=== PATIENT | female | born 1950 | race American Indian/Alaskan Native ===

== ENCOUNTER → 2017-11-29 | Day surgery (SDC) | payer MEDICARE ==
[2017-11-17 15:34] VITALS: BMI 30.7
[~2017-11-29] MED LIST: HYDROmorphone 0.5 mg/0.5 ml ISec IVP PRN; Lactated Ringer's 1,000 ML IV ONE; Lactated Ringer's 1,000 ML IV SCH; Lidocaine 1% Inj (20ml) ONE; Midazolam 2 MG/2 ML VIAL ONE; Oxycodone/Acetaminophen 5/325 mg Tab PO PRN; Propofol 10 mg/ml Inj (20 ML) ONE; ceFAZolin 1 gm in NS 0 GM/0 ML BAG IVPB ONE; ceFAZolin IV 2 gm in Dextrose 2 GM/50 ML BAG IVPB ONE
--- NOTE | 2017-11-29 10:27 | PCM.SURG1 ---
Surgeon's Initial Post Op Note - Surgeon's Notes Surgeon: smiley Linen Room Worker: 0 Anesthesia Administered By: kristina Pre-Operative Diagnosis: breast cancer Operative Findings: port to svc from left jugular Post-Operative Diagnosis: same Operation Performed: powerport via left jugular with US guidance Specimen/Specimens Removed: 0 Estimated Blood Loss: EBL {In ML}: 10 Blood Products Given: N/A Drains Used: No Drains Post-Op Condition: Good Date of Surgery/Procedure: 11/29/17 Time of Surgery/Procedure: 10:27
--- NOTE | 2017-11-29 11:10 | RAD ---
HISTORY: port COMPARISON: No prior. FINDINGS: The left MediPort terminates in the SVC. LUNGS: No active pulmonary disease. PLEURA: No significant pleural effusion identified, no pneumothorax apparent. CARDIOVASCULAR: Normal. OSSEOUS STRUCTURES: No significant abnormalities. VISUALIZED UPPER ABDOMEN: Normal. OTHER FINDINGS: None. IMPRESSION: Left MediPort terminates in the SVC. No acute findings.
[2017-11-29 12:13] VITALS: BP 137/79; PULSE 89; RESP 18; TEMP 97; O2SAT 95
--- NOTE | 2017-11-29 22:03 | OP ---
PROCEDURE DATE: 11/29/2017 PREOPERATIVE DIAGNOSIS: Breast cancer, Port-A-cath chemotherapy. POSTOPERATIVE DIAGNOSIS: Breast cancer, Port-A-cath chemotherapy. PROCEDURE CARRIED OUT: Placement of titanium PowerPort via left jugular vein with C-arm fluoroscopy, ultrasound-guided puncture and micropuncture technique. SURGEON: Joey Mooney Jr., MD FABRICATION MACHINE OPERATOR: None. ANESTHESIOLOGIST: INDICATIONS: The patient is a 67-year-old woman recently diagnosed with breast cancer, requires preoperatively chemotherapy. OPERATIVE FINDINGS: Catheter was inserted eventfully via the jugular vein. DESCRIPTION OF PROCEDURE: Using micropuncture technique and ultrasound guidance, the left jugular vein was cannulated. Under fluoroscopic control, the guidewire was advanced centrally. This was exchanged with a #3 FiberWire. Then a sheath dilator was passed. The initial cath was short and so we decided to use a longer catheter which reached the appropriate location. This was then flushed with heparinized saline attached to the port and the subcutaneous pocket created in the left chest wall. Blood loss of the procedure was less than 10 mL. Operation carried out was titanium PowerPort via left jugular vein with C-arm fluoroscopy, ultrasound-guided puncture and micropuncture technique. Ultrasound imaging of the neck showed the vein was 15 mm in diameter, no compressibility and no evidence of intraluminal thrombosis. Joey Mooney Jr., MD cc: Maia Murillo MD
--- NOTE | 2017-11-30 09:40 | RAD ---
PROCEDURE: HISTORY: As above COMPARISON: None TECHNIQUE: Total fluoroscopic time utilized during the procedure: 35.9 seconds ; 0.67145 mGy cm 2 FINDINGS: Submitted images from the current procedure: 1 Please refer to the physician's notes performing the procedure. IMPRESSION: Less than 1 hour fluoroscopic time utilized during performance of the procedure
== END | disposition home or self-care (01) ==
LOC: C.SDS 06:54
PROVIDERS: ATTEND Surgery Vascular Surgery
DX: C50.919 Malignant neoplasm of unspecified site of unspecified female breast (principal)
CPT/HCPCS: 36561; 71045; J0690; J1170; J2250; J2704; J3010; J7120

== ENCOUNTER 2018-07-23 10:28 | Inpatient (IN) | payer MEDICARE, OTHER ==
[2018-07-23 10:28] VITALS: BMI 32.4
[2018-07-23] MEDS ORDERED: Vancomycin 1 GM 1 GM/250 ML BAG IV STA (11:02)
[2018-07-23] MEDS ORDERED: Cefepime 1 GM in Sodium Chloride 0.9% 50 ML IVPB ONE (11:02)
--- NOTE | 2018-07-23 11:07 | C.PDOC ---
History Of Present Illness Patient sent to ED by PMD for evaluation of possible septic arthitis. Patient is s/p arthrocentesis 1 week ago in his office, was started on PO Levaquin monday (07/21). Results of arthrocentesis showed WBC count >100,000. Patient is c/o B/L knee pain R>L, worse with standing and ambulation. She has PMhx of HTN, breast CA on chemotherapy (last one 06/03/18), DVT, diverticulitis, osteoarthritis. PMD Dr. Jones hem/onc Dr. Murillo Time Seen by Provider: 07/23/18 10:46 Chief Complaint (Nursing): Back Pain History Per: Patient History/Exam Limitations: no limitations Onset/Duration Of Symptoms: Days Current Symptoms Are (Timing): Still Present Quality Of Discomfort: "Pain" Severity: Moderate Associated Symptoms: denies: Incontinence, New Weakness, New Numbness Exacerbating Factor(s): Standing, Other (abmulation) Past Medical History Reviewed: Historical Data, Nursing Documentation, Vital Signs Vital Signs: Last Vital Signs Temp 98.2 F 07/23/18 10:41 Pulse 89 07/23/18 10:41 Resp 18 07/23/18 10:41 BP 131/86 07/23/18 10:41 Pulse Ox 95 07/23/18 10:41 - Medical History PMH: Arthritis (knees), Diverticulitis, Deep Vein Thrombosis, HTN, Malignancy (breast cancer), Peripheral Edema Surgical History: Appendectomy, Cholecystectomy, Tonsillectomy Family History: States: Hypertension - Social History Hx Alcohol Use: No Hx Substance Use: Yes (cannabis) - Immunization History Hx Tetanus Toxoid Vaccination: No Hx Influenza Vaccination: No Hx Pneumococcal Vaccination: No Review Of Systems Constitutional: Negative for: Fever, Chills Cardiovascular: Negative for: Chest Pain, Palpitations Respiratory: Negative for: Cough, Shortness of Breath Gastrointestinal: Negative for: Nausea, Vomiting, Abdominal Pain, Diarrhea Musculoskeletal: Positive for: Other (B/L knee pain R>L) Skin: Negative for: Rash Neurological: Negative for: Weakness, Numbness Physical Exam - Physical Exam Appears: Well, Non-toxic, No Acute Distress Skin: Warm, Dry, No Rash Eye(s): bilateral: Normal Inspection Oral Mucosa: Moist Chest: Other (portacath left upper chest) Cardiovascular: Rhythm Regular Respiratory: Normal Breath Sounds, No Rales, No Rhonchi, No Wheezing Gastrointestinal/Abdominal: Normal Exam, Bowel Sounds, Soft, No Tenderness Extremity: Tenderness (right knee TTP arounds patella with mild swelling, mild warmth to touch, no erythema), No Calf Tenderness, No Deformity Pulses: Left Dorsalis Pedis: Normal, Right Dorsalis Pedis: Normal Neurological/Psych: Oriented x3 ED Course And Treatment - Laboratory Results Result Diagrams: 07/27/18 13:31 07/28/18 07:15 O2 Sat by Pulse Oximetry: 95 (RA) Pulse Ox Interpretation: Normal Progress Note: Blood work ordered and reviewed. IV Vancomycin and IV Cefepime + PO Percocet given. - Physician Consult Information Physician Contacted: Luz Marina Jones Outcome Of Conversation: Discussed patient with PMD, concerned for septic arthritis due to WBC >100k in synovial fluid (arthrocentesis done in his office). Disposition - Disposition Disposition: HOSPITALIZED Disposition Time: 12:16 Condition: STABLE - Clinical Impression Clinical Impression: Septic arthritis of knee, right, Breast cancer Decision To Admit - Pt Status Changed To: Hospital Disposition Of: Inpatient - Admit Certification Admit to Inpatient:: After my assessment, the patient will require hospitalization for at least two midnights. This is because of the severity of symptoms shown, intensity of services needed, and/or the medical risk in this patient being treated as an outpatient. - InPatient: Physician Admission Certification:: see notes - . Bed Request Type: Regular Admitting Physician: Luz Marina Jones Patient Diagnosis: Septic arthritis of knee, right
[2018-07-23 11:27] LABS: VENOUS BLOOD GAS BASE EXCESS 3.9 mmol/L (0.0-2.0); VENOUS BLOOD GAS PCO2 58 mmHg (40-60); VENOUS BLOOD GAS PO2 16 mm/Hg (30-55); VENOUS BLOOD PH 7.34 (7.32-7.43)
[2018-07-23 11:29] LABS: BASO % 0.5 % (0.0-2.0); EOS # 0.1 K/uL (0.0-0.7); EOS % 1.6 % (0.0-4.0); LYMPH # 0.8 K/uL (1.0-4.3); LYMPH % 10.5 % (20.0-40.0); MEAN CELL VOLUME 97.8 fL (81.0-99.0); MEAN CORPUSCULAR HEMOGLOBIN 33.9 pg (27.0-31.0); MEAN CORPUSCULAR HGB CONC 34.6 g/dL (33.0-37.0); MEAN PLATELET VOLUME 7.7 fL (7.2-11.7); MONO # 0.6 K/uL (0.0-0.8); MONO % 7.4 % (0.0-10.0); NEUT # 6.1 K/uL (1.8-7.0); NRBC % 0.1 % (0.0-2.0); RBC 3.85 Mil/uL (3.80-5.20); RED CELL DISTRIBUTION WIDTH 14.8 % (11.5-14.5); WHITE BLOOD COUNT 7.6 K/uL (4.8-10.8)
[2018-07-23] MEDS ORDERED: Vancomycin 1 GM 1 GM/250 ML BAG IVPB ONE (11:40)
[2018-07-23 11:59] LABS: ALB/GLOB RATIO 1.1 (1.0-2.1); ALT/SGPT 16 U/L (9-52); AST/SGOT 35 U/L (14-36); BLOOD UREA NITROGEN 9 mg/dL (7-17); CALCIUM 10.1 mg/dl (8.6-10.4); GFR NON-AFRICAN AMERICAN > 60
[2018-07-23] MEDS ORDERED: Oxycodone/Acetaminophen 5/325 mg Tab PO STA (12:27)
[2018-07-23] MEDS ORDERED: Oxycodone/Acetaminophen 5/325 mg Tab ONE (12:56)
[2018-07-23 13:39] LABS: SQUAMOUS EPITHIAL 1 /hpf (0-5); URINE BILIRUBIN NEGATIVE (NEGATIVE); URINE BLOOD NEGATIVE (NEGATIVE); URINE CLARITY Clear (Clear); URINE COLOR Straw (YELLOW); URINE GLUCOSE (UA) NORMAL (Normal); URINE LEUKOCYTE ESTERASE NEG Leu/uL (Negative); URINE PROTEIN NEGATIVE (NEGATIVE); URINE UROBILINOGEN NORMAL mg/dL (0.2-1.0)
[2018-07-23] MEDS ORDERED: Albuterol-Ipratrop 3 mg / 0.5 (3 ml) UD INH PRN (15:20)
[2018-07-23] MEDS: Cefepime IV 1 gm in Dextrose 1 GM/50 ML BAG IVPB SCH (17:42)
[2018-07-23] MEDS: Oxycodone/Acetaminophen 5/325 mg Tab PO PRN (20:09)
[2018-07-24] MEDS: Cefepime IV 1 gm in Dextrose 1 GM/50 ML BAG IVPB SCH ×2 (04:46→16:50)
[2018-07-24] MEDS: Oxycodone/Acetaminophen 5/325 mg Tab PO PRN ×2 (04:51→17:52)
--- NOTE | 2018-07-24 09:56 | RAD ---
Date of service: 07/24/2018 PROCEDURE: Bilateral Knee Radiographs. HISTORY: knee pain, hx breast ca COMPARISON: None. FINDINGS: BONES: Right Knee: No fracture Left Knee: No fracture JOINTS: Right Knee: Arthrosis Left knee: Arthrosis SOFT TISSUES: Right Knee: Normal. Left Knee: Normal. JOINT EFFUSION: Right Knee: Present Left Knee: Present OTHER FINDINGS: None. IMPRESSION: Bilateral advanced tricompartmental osteoarthrosis. Each medial femoral tibial compartment most notably affected right knee more than left. Subarticular cystic changes that on the right suggests a geode measuring up to 1.7 cm medial tibial plateau. Bilateral prominent knee joint effusions right greater than left Comments: If further evaluation is needed consider MRI of the knee
--- NOTE | 2018-07-24 09:58 | RAD ---
Date of service: 07/24/2018 PROCEDURE: Radiographs of the bilateral Tibiae and Fibulae. HISTORY: leg pain COMPARISON: None available. TECHNIQUE: Frontal and lateral views obtained. FINDINGS: BONES: RIGHT TIBIA: No fracture a geographic sclerotic appearing approximately 4 by 20 mm lesion projects over the mid to proximal right tibial shaft frontal view. This may be the posterior cortical thickened appearance at this level on the right lateral view No pathological fracture seen here. Appearance nonspecific. Bone island as well as blastic lesions are some considerations. Its chronicity is unknown. LEFT TIBIA: No fracture JOINT SPACES: RIGHT TIBIA: Tricompartmental joint space narrowing knee levelAnkle joint also appears narrowed LEFT TIBIA: Tricompartmental joint space narrowing knee level ankle joint also appears narrowed SOFT TISSUES: RIGHT TIBIA: Normal. LEFT TIBIA: Normal. OTHER FINDINGS: None. IMPRESSION: No fracture appreciated. There are multiple sub articular cystic lucencies sleeve arthro pathic in nature most pronounced at each knee level right greater than left. These are referenced on the same-day bilateral knee x-ray report. The mid to proximal right tibial shaft sclerotic lesion is nonspecific-a bone island is 1 consideration. Conceivably a blastic lesion is not excluded-this is however believe less likely. If echo register is to apparent posterior tibial cortical thickening. If needed consider MRI of the right lower leg for further evaluation. Incidentally noted-right quadriceps insertional enthesophyte
--- NOTE | 2018-07-24 10:52 | CP.PCM.CON ---
History of Present Illness - History of Present Illness History of Present Illness: Orthopedic consultation Dr. Whipple 67F complains of R>>L knee pain, worsening over last week. She says that she always has knee pain due to her arthritis, that she probably should have had knee replacement years ago, but she has been getting cortisone injections which helped. She says she usually walks without assistive device but occasionally uses cane, but over last week she has to use walker. Patient says she saw Dr. Jones in his office and he drained 3 tubes of yellow fluid from her right knee approx 10 days ago, and then they called her and told her to come to hospital. She says her knee isn't feeling any better from taking the antibiotics Dr. Jones prescribed. Denies numbness/tingling. Denies trauma/falls/CP/SOB /dizziness/n/v/fever/chills. Patient has right breast cancer with +nodes, completed 8 months of chemo early June. Patient has not had breast surgery yet. No known bony involvement or distant mets. No history of gout per patient Patient had recent sore throat approx 2 weeks ago D/w Dr. Jones who states >90,000 WBC, approx 90% pmns, cultures negative Review of Systems - Review of Systems All systems: reviewed and no additional remarkable complaints except - Constitutional Constitutional: As Per HPI - Cardiovascular Cardiovascular: As Per HPI - Respiratory Respiratory: As Per HPI - Gastrointestinal Gastrointestinal: As Per HPI - Musculoskeletal Musculoskeletal: As Per HPI - Integumentary Additional comments: no wounds - Hematologic/Lymphatic Hematologic: absent: As Per HPI, Easy Bleeding, Easy Bruising, Lymphadenopathy, Other Past Patient History - Infectious Disease Hx of Infectious Diseases: None - Tetanus Immunizations Tetanus Immunization: Unknown - Past Medical History & Family History Past Medical History?: Yes Past Family History: Reviewed and not pertinent - Past Social History Smoking Status: Former Smoker - CARDIAC Hx Hypertension: Yes Hx Peripheral Edema: Yes - PULMONARY Hx Respiratory Disorders: No - NEUROLOGICAL Hx Neurological Disorder: No - HEENT Hx HEENT Problems: No - RENAL Hx Chronic Kidney Disease: No - ENDOCRINE/METABOLIC Hx Endocrine Disorders: No - INTEGUMENTARY Hx Dermatological Problems: No - MUSCULOSKELETAL/RHEUMATOLOGICAL Hx Arthritis: Yes (knees) Hx Falls: No - GASTROINTESTINAL Hx Diverticulitis: Yes - GENITOURINARY/GYNECOLOGICAL Hx Genitourinary Disorders: No - PSYCHIATRIC Hx Substance Use: Yes (cannabis) - SURGICAL HISTORY Hx Appendectomy: Yes Hx Cholecystectomy: Yes Hx Tonsillectomy: Yes - ANESTHESIA Hx Anesthesia: Yes Hx Anesthesia Reactions: No Hx Malignant Hyperthermia: No Meds Allergies/Adverse Reactions: Allergies Allergy/AdvReac Type Severity Reaction Status Date / Time enalapril Allergy RASH Verified 03/14/18 18:31 iodine Allergy SWELLING Verified 03/14/18 18:31 lisinopril Allergy SWELLING Verified 03/14/18 18:31 shellfish derived AdvReac Severe ITCHING Verified 03/14/18 18:31 metronidazole [From Flagyl] AdvReac ANAPHYLAXIS Verified 03/14/18 18:31 - Medications Medications: Current Medications Acetaminophen (Tylenol 325mg Tab) 650 mg PO Q6 PRN PRN Reason: Pain, Mild (1-3) Albuterol/Ipratropium (Duoneb 3 Mg/0.5 Mg (3 Ml) Ud) 3 ml INH RQ6 PRN PRN Reason: Shortness of Breath Amlodipine Besylate (Norvasc) 5 mg PO DAILY [facility] Last Admin: 07/24/18 09:45 Dose: 5 mg Docusate Sodium (Colace) 100 mg PO BID [facility] Last Admin: 07/24/18 09:44 Dose: 100 mg Hydrochlorothiazide (Microzide) 12.5 mg PO DAILY [facility] Last Admin: 07/24/18 09:45 Dose: 12.5 mg Cefepime HCl (Maxipime Iv 1 Gm Premix) 1 gm in 50 mls @ 100 mls/hr IVPB Q12H [facility]; Protocol Last Admin: 07/24/18 04:46 Dose: 100 mls/hr Ondansetron HCl (Zofran Tab) 8 mg PO Q12 PRN PRN Reason: Nausea/Vomiting Oxycodone/Acetaminophen (Percocet 5/325 Mg Tab) 1 tab PO Q8 PRN PRN Reason: Pain, moderate (4-7) Stop: 07/26/18 22:01 Last Admin: 07/24/18 04:51 Dose: 1 tab Physical Exam - Constitutional Appears: Well, No Acute Distress - Head Exam Head Exam: ATRAUMATIC - Neck Exam Neck exam: Positive for: Full Rom, Normal Inspection - Respiratory Exam Respiratory Exam: NORMAL BREATHING PATTERN - Cardiovascular Exam Additional comments: +DP/PT pulses - Extremities Exam Additional comments: B knee effusions, moderate R knee warm, Left knee normal temperature mild pain with flexion of R knee beyond 75 degrees, no pain with PROM skin intact, no obvious erythema - Neurological Exam Neurological exam: Alert, Oriented x3 - Psychiatric Exam Psychiatric exam: Normal Affect, Normal Mood - Skin Skin Exam: Dry, Intact, Normal Color, Warm Results - Vital Signs Recent Vital Signs: Last Vital Signs Temp 98.5 F 07/24/18 07:00 Pulse 82 07/24/18 07:00 Resp 20 07/24/18 07:00 BP 117/68 07/24/18 07:00 Pulse Ox 95 07/24/18 07:00 - Labs Result Diagrams: 07/23/18 11:20 07/23/18 11:20 Labs: Laboratory Results - last 24 hr 07/23/18 07/23/18 07/23/18 11:20 11:20 11:24 WBC 7.6 RBC 3.85 Hgb 13.0 D Hct 37.7 MCV 97.8 D MCH 33.9 H MCHC 34.6 RDW 14.8 H Plt Count 346 D MPV 7.7 Neut % (Auto) 80.0 H Lymph % (Auto) 10.5 L Lamb % (Auto) 7.4 Eos % (Auto) 1.6 Baso % (Auto) 0.5 Neut # (Auto) 6.1 Lymph # (Auto) 0.8 L Lamb # (Auto) 0.6 Eos # (Auto) 0.1 Baso # (Auto) 0.0 pO2 16 L VBG pH 7.34 VBG pCO2 58 VBG HCO3 25.8 VBG Total CO2 33.1 H VBG O2 Sat (Calc) 21.2 L VBG Base Excess 3.9 H VBG Potassium 4.0 Glucose 111 H Lactate 1.5 Sodium 138 136.0 Potassium 4.5 Chloride 98 100.0 Carbon Dioxide 27 Anion Gap 17 BUN 9 Creatinine 0.8 Est GFR ( Amer) > 60 Est GFR (Non-Af Amer) > 60 Random Glucose 117 H Calcium 10.1 Total Bilirubin 0.5 AST 35 ALT 16 Alkaline Phosphatase 111 Total Protein 7.7 Albumin 4.0 Globulin 3.7 Albumin/Globulin Ratio 1.1 Venous Blood Potassium 4.0 Urine Color Urine Clarity Urine pH Ur Specific Charmco Urine Protein Urine Glucose (UA) Urine Ketones Urine Blood Urine Nitrate Urine Bilirubin Urine Urobilinogen Ur Leukocyte Esterase Urine WBC (Auto) Ur Squamous Epith Cells 07/23/18 13:33 WBC RBC Hgb Hct MCV MCH MCHC RDW Plt Count MPV Neut % (Auto) Lymph % (Auto) Lamb % (Auto) Eos % (Auto) Baso % (Auto) Neut # (Auto) Lymph # (Auto) Lamb # (Auto) Eos # (Auto) Baso # (Auto) pO2 VBG pH VBG pCO2 VBG HCO3 VBG Total CO2 VBG O2 Sat (Calc) VBG Base Excess VBG Potassium Glucose Lactate Sodium Potassium Chloride Carbon Dioxide Anion Gap BUN Creatinine Est GFR ( Amer) Est GFR (Non-Af Amer) Random Glucose Calcium Total Bilirubin AST ALT Alkaline Phosphatase Total Protein Albumin Globulin Albumin/Globulin Ratio Venous Blood Potassium Urine Color Straw Urine Clarity Clear Urine pH 7.0 Ur Specific Charmco 1.004 Urine Protein Negative Urine Glucose (UA) Normal Urine Ketones Negative Urine Blood Negative Urine Nitrate Negative Urine Bilirubin Negative Urine Urobilinogen Normal Ur Leukocyte Esterase Neg Urine WBC (Auto) < 1 Ur Squamous Epith Cells 1 - Impressions Impression: atient Name / ID : BRONSON BLOUNT / [id number] Exam Date : 07/24/2018 09:02:52 ( Approved ) Study Comment : Sex / Age : F / [id number] Creator : Smita Covington V. Dictator : Smita Covington V. Artists' Booking Representative : Dictaphone Technician : Smita Covington V. Approver2 : Report Date : 07/24/2018 09:31:56 My Comment : Date of service: 07/24/2018 PROCEDURE: Bilateral Knee Radiographs. HISTORY: knee pain, hx breast ca COMPARISON: None. FINDINGS: BONES: Right Knee: No fracture Left Knee: No fracture JOINTS: Right Knee: Arthrosis Left knee: Arthrosis SOFT TISSUES: Right Knee: Normal. Left Knee: Normal. JOINT EFFUSION: Right Knee: Present Left Knee: Present OTHER FINDINGS: None. IMPRESSION: Bilateral advanced tricompartmental osteoarthrosis. Each medial femoral tibial compartment most notably affected right knee more than left. Subarticular cystic changes that on the right suggests a geode measuring up to 1.7 cm medial tibial plateau. Bilateral prominent knee joint effusions right greater than left Comments: If further evaluation is needed consider MRI of the knee Assessment & Plan (1) Effusion of knee joint right Assessment and Plan: patient seen and examined by Dr. Whipple states patient is afebrile, no leukocytosis, mildly symptomatic knee that does not clinically appear septic will monitor at this time for response to antibiotics, no surgical intervention indicated at present PT/OT VTE proph will monitor as per Dr. Whipple Status: Acute (2) Degenerative arthritis of right knee Status: Acute (3) Primary osteoarthritis of left knee Status: Acute
--- NOTE | 2018-07-24 19:53 | CP.PCM.HP ---
History of Present Illness - History of Present Illness History of Present Illness: Chief complaint: Worsening the right leg swelling. HPI: Patient with a history of breast cancer on chemotherapy. Patient came to my office with increasing her right leg swelling 1 week ago, initial evaluation noted to have swelling in the right knee, with the suprapatellar fullness. X-ray of the right knee showed arthritic changes. I advised the patient given the findings rule out infectious process. And she agreed to have the arthrocentesis, and I did the arthrocentesis in the office. The final we'll fluid was showing evidence of WBC of 88,000 with the poly- neutrophil predominance. Cultures were negative at the time and also Gram stain is negative, but given the worsening redness, swelling I advised the patient to come to the emergency room to rule out a possible infective arthritis. 66-year-old female with history of breast cancer, diagnosed November 2017, currently receiving chemotherapy, osteoarthritis, hypertension, came to the office routine medical examination. According to the patient is having recently not feeling well, during that chemotherapy patient was feeling somewhat down, and the frequent hospitaliza tion. having difficult time in walking now Combining of increasing swelling, not improvingwith the pain management. no fever,no chills, no chest pain. Past medical history: Breast cancer since November 2017 Osteoarthritis Hypertension Past medical history: Patient has history of abdominal adhesions, appendectomy, tonsillectomy, breast biopsy Allergy: Iodine, enalapril, causing tongue swelling Family history: Mother COPD Father with hypertension CVA Siblings one sister had breast cancer. Patient has a 3 kids. One daughter had anxiety the Son has a history of hypertension CVA and stroke. Other son is healthy Social history: Patient used to be smoker in the past. Still smoking on and off. Uses marijuana Review of systems: Denies any headache. Sinus symptoms for the Chest pain noted. Cough presently Clear mucus on and off On examination: Chest bilateral good air entry, wheezing noted. Regular heart sound. Nontender abdomen. No pedal edema. Severe bilateral deformities of the knee with the final swelling noted labs nonspecific. x-ray of the knee joint arthritic cope lucencies noted Assessment: Patient is a 64-year-old female with history breast cancer recently diagnosed. Currently being followed by oncologist. Patient scheduled to have a MRI of the breast, following that she will be possibly getting the surgical intervention with the breast oncologist at, not clear at this time the location. Stable from that point She also received preoperative chemotherapy Hypertension, currently stable. COPD likely, still continues to smoke. Current medications include albuterol via nebulizer Levofloxacin Promethazine Hydrochlorothiazide 25 mg daily Tramadol 50 mg daily Omeprazole 20 mg daily Amlodipine 5 mg daily As the patient having increasing swelling, redness I advised the patient to admit. Underlying septic arthritis cannot be ruled out. Will start the patient on broad-spectrum antibiotic. Orthopedic evaluation. Physical therapy. Pain control. DVT and GI prophylaxis and will follow-up the patient Present on Admission - Present on Admission Any Indicators Present on Admission: No History of DVT/PE: No History of Uncontrolled Diabetes: No Urinary Catheter: No Decubitus Ulcer Present: No Past Patient History - Infectious Disease Hx of Infectious Diseases: None - Tetanus Immunizations Tetanus Immunization: Unknown - Past Medical History & Family History Past Medical History?: Yes Past Family History: Reviewed and not pertinent - Past Social History Smoking Status: Former Smoker - CARDIAC Hx Hypertension: Yes - PULMONARY Hx Respiratory Disorders: No - NEUROLOGICAL Hx Neurological Disorder: No - HEENT Hx HEENT Problems: No - RENAL Hx Chronic Kidney Disease: No - ENDOCRINE/METABOLIC Hx Endocrine Disorders: No - INTEGUMENTARY Hx Dermatological Problems: No - MUSCULOSKELETAL/RHEUMATOLOGICAL Hx Arthritis: Yes (knees) - GASTROINTESTINAL Hx Diverticulitis: Yes - GENITOURINARY/GYNECOLOGICAL Hx Genitourinary Disorders: No - PSYCHIATRIC Hx Substance Use: Yes (cannabis) - SURGICAL HISTORY Hx Appendectomy: Yes Hx Cholecystectomy: Yes Hx Tonsillectomy: Yes - ANESTHESIA Hx Anesthesia: Yes Hx Anesthesia Reactions: No Hx Malignant Hyperthermia: No Meds Allergies/Adverse Reactions: Allergies Allergy/AdvReac Type Severity Reaction Status Date / Time enalapril Allergy RASH Verified 03/14/18 18:31 iodine Allergy SWELLING Verified 03/14/18 18:31 lisinopril Allergy SWELLING Verified 03/14/18 18:31 shellfish derived AdvReac Severe ITCHING Verified 03/14/18 18:31 metronidazole [From Flagyl] AdvReac ANAPHYLAXIS Verified 03/14/18 18:31 Results - Vital Signs Recent Vital Signs: Last Vital Signs Temp 98.2 F 07/24/18 16:00 Pulse 84 07/24/18 16:00 Resp 20 07/24/18 16:00 BP 112/72 07/24/18 16:00 Pulse Ox 97 07/24/18 16:00 - Labs Result Diagrams: 07/23/18 11:20 07/23/18 11:20
--- NOTE | 2018-07-24 19:55 | CP.PCM.PN ---
Subjective - Date & Time of Evaluation Date of Evaluation: 07/24/18 Time of Evaluation: 19:54 - Subjective Subjective: She is still continues to have a pain in the legs. Bilateral knee joint swelling noted. Patient was seen by orthopedic surgery. As per the orthopedic surgery the clinical picture and analysis of the fluid doesn't seems to be infective. But antibiotic may not be a bad idea at this time. Vital signs otherwise stable. Will start the patient on physical therapy. Antibiotic for a few more days. Exercise in the will follow the patient. DVT GI prophylaxis controlled the blood pressure and will follow the patient Objective - Vital Signs/Intake and Output Vital Signs (last 24 hours): Temp Pulse Resp BP Pulse Ox 98.2 F 84 20 112/72 97 07/24/18 16:00 07/24/18 16:00 07/24/18 16:00 07/24/18 16:00 07/24/18 16:00 Intake and Output: 07/24/18 07/25/18 18:59 06:59 Intake Total 480 Balance 480 - Medications Medications: Current Medications Acetaminophen (Tylenol 325mg Tab) 650 mg PO Q6 PRN PRN Reason: Pain, Mild (1-3) Last Admin: 07/24/18 12:00 Dose: 650 mg Albuterol/Ipratropium (Duoneb 3 Mg/0.5 Mg (3 Ml) Ud) 3 ml INH RQ6 PRN PRN Reason: Shortness of Breath Amlodipine Besylate (Norvasc) 5 mg PO DAILY [facility] Last Admin: 07/24/18 09:45 Dose: 5 mg Docusate Sodium (Colace) 100 mg PO BID [facility] Last Admin: 07/24/18 17:52 Dose: 100 mg Hydrochlorothiazide (Microzide) 12.5 mg PO DAILY [facility] Last Admin: 07/24/18 09:45 Dose: 12.5 mg Cefepime HCl (Maxipime Iv 1 Gm Premix) 1 gm in 50 mls @ 100 mls/hr IVPB Q12H [facility]; Protocol Last Admin: 07/24/18 16:50 Dose: 100 mls/hr Ondansetron HCl (Zofran Tab) 8 mg PO Q12 PRN PRN Reason: Nausea/Vomiting Oxycodone/Acetaminophen (Percocet 5/325 Mg Tab) 1 tab PO Q8 PRN PRN Reason: Pain, moderate (4-7) Stop: 07/26/18 22:01 Last Admin: 07/24/18 17:52 Dose: 1 tab - Labs Labs: 07/23/18 11:20 07/23/18 11:20
[2018-07-25] MEDS: Cefepime IV 1 gm in Dextrose 1 GM/50 ML BAG IVPB SCH ×2 (04:56→16:59)
[2018-07-25] MEDS: Oxycodone/Acetaminophen 5/325 mg Tab PO PRN ×3 (04:57→22:10)
[2018-07-25 08:30] LABS: BASO # 0.1 K/uL (0.0-0.2); EOS # 0.5 K/uL (0.0-0.7); EOS % 10.4 % (0.0-4.0); HEMOGLOBIN 11.1 g/dL (11.0-16.0); LYMPH # 0.9 K/uL (1.0-4.3); LYMPH % 18.4 % (20.0-40.0); MEAN CELL VOLUME 96.9 fL (81.0-99.0); MEAN CORPUSCULAR HEMOGLOBIN 32.2 pg (27.0-31.0); MEAN CORPUSCULAR HGB CONC 33.3 g/dL (33.0-37.0); MEAN PLATELET VOLUME 7.6 fL (7.2-11.7); MONO # 0.7 K/uL (0.0-0.8); MONO % 13.6 % (0.0-10.0); NEUT # 2.9 K/uL (1.8-7.0); NEUT % 56.6 % (50.0-75.0); RBC 3.45 Mil/uL (3.80-5.20); WHITE BLOOD COUNT 5.1 K/uL (4.8-10.8)
--- NOTE | 2018-07-25 14:30 | MRI ---
MRI right knee HISTORY: Cancer. Swelling. Pain. Comparison: X-ray dated 07/24/2018 Technique: Multi-echo multiplanar sequences were performed through the right knee without the use of intravenous contrast. Findings: Large suprapatellar joint effusion. In addition, there are patchy areas of reactive increased T2 signal seen within the distal femur and proximal tibia which are nonspecific. Sequelae of acute infectious and or inflammatory changes cannot be excluded. Correlation with joint aspiration and culture sampling is recommended to exclude underlying septic joint. Nonvisualization of the visualized anterior cruciate ligament at its expected location at the intercondylar notch suggestive for a chronic complete tear. Posterior cruciate ligament is preserved. Complex tear involving the body and posterior horn of the medial meniscus with deficiency of a portion of the body and posterior horn. Globular increased signal within the body of the lateral meniscus suggestive for intrasubstance degeneration and or intrasubstance partial tearing. High-grade sprain of the proximal and midportion of the medial collateral ligament. Moderate grade sprain of the lateral collateral ligament complex structures. Quadriceps tendon is preserved. Patellar tendon is preserved. Moderate grade strains of the medial and lateral patellar retinaculum. Severe cartilage thinning and loss overlying the patellar apex and medial patellar facet extending to the subchondral joint. Severe cartilage loss involving the medial compartment of the femorotibial joint space. Associated prominent signal change in the adjacent marrow of the mid to posterior medial proximal tibia and medial femoral condyle suggestive for severe osteochondral change. In addition, there is associated prominent subchondral cyst formation and osteophytosis. At the posterior aspect of the medial proximal tibia ,near the intercondylar notch, there is a large 1.6 centimeter cystic lesion which may represent a prominent subchondral cyst versus intraosseous geode versus additional etiology. Moderate cartilage thinning and loss involving the lateral compartment of the femorotibial joint space. At the mid to posterior lateral femoral condyle, at the articular surface near the intercondylar notch, there is a focal area of signal abnormality measuring 1.2 centimeters with associated adjacent reactive edema suggestive for osteochondral change; however, developing subchondral osseous injury and or stress injury and or additional etiology cannot be excluded. Impression: 1. Large suprapatellar joint effusion. In addition, there are patchy areas of reactive increased T2 signal seen within the distal femur and proximal tibia which are nonspecific. Sequelae of acute infectious and or inflammatory changes cannot be excluded. Correlation with joint aspiration and culture sampling is recommended to exclude underlying septic joint. 2. Nonvisualization of the visualized anterior cruciate ligament at its expected location at the intercondylar notch suggestive for a chronic complete tear. 3. Complex tear involving the body and posterior horn of the medial meniscus with deficiency of a portion of the body and posterior horn. 4. Globular increased signal within the body of the lateral meniscus suggestive for intrasubstance degeneration and or intrasubstance partial tearing. 5. High-grade sprain of the proximal and midportion of the medial collateral ligament. 6. Moderate grade sprain of the lateral collateral ligament complex structures. 7. Moderate grade strains of the medial and lateral patellar retinaculum. 8. Severe cartilage thinning and loss overlying the patellar apex and medial patellar facet extending to the subchondral joint. 9. Severe cartilage loss involving the medial compartment of the femorotibial joint space. Associated prominent signal change in the adjacent marrow of the mid to posterior medial proximal tibia and medial femoral condyle suggestive for severe osteochondral change. In addition, there is associated prominent subchondral cyst formation and osteophytosis. At the posterior aspect of the medial proximal tibia ,near the intercondylar notch, there is a large 1.6 centimeter cystic lesion which may represent a prominent subchondral cyst versus intraosseous geode versus additional etiology. 10. Severe medial compartment osteoarthrosis with meniscal deficiency, cartilage loss, subchondral cyst formation, intraosseous geode formation, and osteophytosis. 11. Moderate cartilage thinning and loss involving the lateral compartment of the femorotibial joint space. At the mid to posterior lateral femoral condyle, at the articular surface near the intercondylar notch, there is a focal area of signal abnormality measuring 1.2 centimeters with associated adjacent reactive edema suggestive for osteochondral change; however, developing subchondral osseous injury and or stress injury and or additional etiology cannot be excluded. If there is persistent concern for osseous metastatic disease, consider correlation with bone scan.
[2018-07-25 15:46] LABS: FLUID TYPE SYNOVIAL FLUID
--- NOTE | 2018-07-25 15:50 | CP.PCM.PN ---
Subjective - Date & Time of Evaluation Date of Evaluation: 07/25/18 Time of Evaluation: 15:48 - Subjective Subjective: Patient states that she was unable to tolerate the MRI of her left knee. She completed the right. She says that today her left knee is giving her a lot more pain and feels weak compared to the right. The right is still painful, but it f eels less painful and less warm per patient. Review of Systems - Review of Systems All systems: reviewed and no additional remarkable complaints except - Constitutional Additional comments: denies - Cardiovascular Cardiovascular: UNREMARKABLE - Respiratory Respiratory: UNREMARKABLE - Musculoskeletal Musculoskeletal: As Par HPI - Integumentary Integumentary: UNREMARKABLE - Neurological Additional comments: denies numbness/tingling - Hematologic/Lymphatic Additional comments: patient states she does not bleed much Objective - Vital Signs/Intake and Output Vital Signs (last 24 hours): Temp Pulse Resp BP Pulse Ox 98.3 F 92 H 20 115/77 96 07/25/18 07:52 07/25/18 07:52 07/25/18 07:52 07/25/18 07:52 07/25/18 07:52 Intake and Output: 07/25/18 07/25/18 06:59 18:59 Intake Total 450 730 Balance 450 730 - Medications Medications: Current Medications Acetaminophen (Tylenol 325mg Tab) 650 mg PO Q6 PRN PRN Reason: Pain, Mild (1-3) Last Admin: 07/25/18 11:40 Dose: 650 mg Albuterol/Ipratropium (Duoneb 3 Mg/0.5 Mg (3 Ml) Ud) 3 ml INH RQ6 PRN PRN Reason: Shortness of Breath Amlodipine Besylate (Norvasc) 5 mg PO DAILY [facility] Last Admin: 07/25/18 09:43 Dose: 5 mg Docusate Sodium (Colace) 100 mg PO BID [facility] Last Admin: 07/25/18 09:43 Dose: 100 mg Hydrochlorothiazide (Microzide) 12.5 mg PO DAILY [facility] Last Admin: 07/25/18 09:43 Dose: 12.5 mg Cefepime HCl (Maxipime Iv 1 Gm Premix) 1 gm in 50 mls @ 100 mls/hr IVPB Q12H [facility]; Protocol Last Admin: 07/25/18 04:56 Dose: 100 mls/hr Ondansetron HCl (Zofran Tab) 8 mg PO Q12 PRN PRN Reason: Nausea/Vomiting Oxycodone/Acetaminophen (Percocet 5/325 Mg Tab) 1 tab PO Q8 PRN PRN Reason: Pain, moderate (4-7) Stop: 07/26/18 22:01 Last Admin: 07/25/18 14:13 Dose: 1 tab - Labs Labs: 07/25/18 08:01 07/23/18 11:20 - Constitutional Appears: Well, No Acute Distress - Head Exam Head Exam: ATRAUMATIC - Respiratory Exam Respiratory Exam: NORMAL BREATHING PATTERN - Cardiovascular Exam Additional comments: +DP/PT pulses - Extremities Exam Additional comments: Left knee: large joint effusion, increased from exam yesterday. Not warm. No erythema, pain with AROM Right knee: less warm, but still warmer than left, no increase in mod effusion, not impressive clinically, ROM with less pain today - Neurological Exam Neurological Exam: Alert, Awake, Oriented x3 Neuro motor strength exam: Left Lower Extremity: 5 (ankle/toes, pain with ROM B knees worse on left), Right Lower Extremity: 5 - Psychiatric Exam Psychiatric exam: Normal Affect, Normal Mood - Skin Skin Exam: Dry, Intact, Normal Color, Warm Assessment and Plan (1) Effusion, left knee Assessment & Plan: chief complaint today is LEFT knee pain due to significant increase in effusion and pain over night, aspiration of left knee performed Risks, benefits, alternatives of knee arthrocentesis and aspiration were explained in detail, patient verbalized understanding and consented to procedure. The patients right knee was prepped in the usual sterile fashion with betadine and chloroprep. A 21-gauge 1.5 inch needle was inserted into the knee joint from a superior lateral approach. Through this needle 70 cc of clear yellow synovial fluid was aspirated, and sent for stat cell count, crystals, gram stain, culture and sensitivity x3. The needle was removed, and sterile dressing, amrik bandage, and ice were applied to knee. Patient tolerated the procedure well. There were no complications. f/u results of synovial fluid analysis, r/o infection/gout/OA exacerbation f/u MRI left knee d/w Dr. Whipple regarding left knee pain and aspiration as well as MRI of right knee findings Status: Acute (2) Effusion of knee joint right Status: Acute (3) Degenerative arthritis of right knee Status: Acute (4) Primary osteoarthritis of left knee Status: Acute Procedures Attestation:: I certify that I have explained the specified Operation(s) or Procedure(s), risks, benefits and reasonable alternatives to the Patient and/or other person responsible. The opportunity was given to ask questions and all questions answered - Joint Aspiration/Injection Joint #1 Consent Obtained: Verbal Consent Time Out Performed: Yes Side of Body: Left Joint Aspirated: Knee Ultrasound Guidance Used: No Skin Prep: Povidone-Iodine, Chlorprep Needle Size Used: Other (21g) Fluid Clarity: Clear (yellow) Total Fluid Removed (mls): 70 Patient Tolorated Procedure: Well Radiology Interpretation - Director Of Scientific Research Director Of Scientific Research:: Radiologist - Radiology Interpretation #2 Interpretation: Accession No. : [id number] Patient Name / ID : BRONSON BLOUNT / [id number] Exam Date : 07/25/2018 13:17:19 ( Approved ) Study Comment : Sex / Age : F / 67Y Creator : Tucker Francis MD Dictator : Tucker Francis MD Liquor Merchant : [employer] Equipment Operator : Tucker Francis MD Approver2 : Report Date : 07/25/2018 14:25:14 My Comment : MRI right knee HISTORY: Cancer. Swelling. Pain. Comparison: X-ray dated 07/24/2018 Technique: Multi-echo multiplanar sequences were performed through the right knee without the use of intravenous contrast. Findings: Large suprapatellar joint effusion. In addition, there are patchy areas of reactive increased T2 signal seen within the distal femur and proximal tibia which are nonspecific. Sequelae of acute infectious and or inflammatory changes cannot be excluded. Correlation with joint aspiration and culture sampling is recommended to exclude underlying septic joint. Nonvisualization of the visualized anterior cruciate ligament at its expected location at the intercondylar notch suggestive for a chronic complete tear. Posterior cruciate ligament is preserved. Complex tear involving the body and posterior horn of the medial meniscus with deficiency of a portion of the body and posterior horn. Globular increased signal within the body of the lateral meniscus suggestive for intrasubstance degeneration and or intrasubstance partial tearing. High-grade sprain of the proximal and midportion of the medial collateral ligament. Moderate grade sprain of the lateral collateral ligament complex structures. Quadriceps tendon is preserved. Patellar tendon is preserved. Moderate grade strains of the medial and lateral patellar retinaculum. Severe cartilage thinning and loss overlying the patellar apex and medial patellar facet extending to the subchondral joint. Severe cartilage loss involving the medial compartment of the femorotibial joint space. Associated prominent signal change in the adjacent marrow of the mid to posterior medial proximal tibia and medial femoral condyle suggestive for severe osteochondral change. In addition, there is associated prominent subchondral cyst formation and osteophytosis. At the posterior aspect of the medial proximal tibia ,near the intercondylar notch, there is a large 1.6 centimeter cystic lesion which may represent a prominent subchondral cyst versus intraosseous geode versus additional etiology. Moderate cartilage thinning and loss involving the lateral compartment of the femorotibial joint space. At the mid to posterior lateral femoral condyle, at the articular surface near the intercondylar notch, there is a focal area of signal abnormality measuring 1.2 centimeters with associated adjacent reactive e michael suggestive for osteochondral change; however, developing subchondral osseous injury and or stress injury and or additional etiology cannot be excluded. Impression: 1. Large suprapatellar joint effusion. In addition, there are patchy areas of reactive increased T2 signal seen within the distal femur and proximal tibia which are nonspecific. Sequelae of acute infectious and or inflammatory changes cannot be excluded. Correlation with joint aspiration and culture sampling is recommended to exclude underlying septic joint. 2. Nonvisualization of the visualized anterior cruciate ligament at its expected location at the intercondylar notch suggestive for a chronic complete tear. 3. Complex tear involving the body and posterior horn of the medial meniscus with deficiency of a portion of the body and posterior horn. 4. Globular increased signal within the body of the lateral meniscus suggestive for intrasubstance degeneration and or intrasubstance partial tearing. 5. High-grade sprain of the proximal and midportion of the medial collateral ligament. 6. Moderate grade sprain of the lateral collateral ligament complex structures. 7. Moderate grade strains of the medial and lateral patellar retinaculum. 8. Severe cartilage thinning and loss overlying the patellar apex and medial patellar facet extending to the subchondral joint. 9. Severe cartilage loss involving the medial compartment of the femorotibial joint space. Associated prominent signal change in the adjacent marrow of the mid to posterior medial proximal tibia and medial femoral condyle suggestive for severe osteochondral change. In addition, there is associated prominent subchondral cyst formation and osteophytosis. At the posterior aspect of the medial proximal tibia ,near the intercondylar notch, there is a large 1.6 centimeter cystic lesion which may represent a prominent subchondral cyst versus intraosseous geode versus additional etiology. 10. Severe medial compartment osteoarthrosis with meniscal deficiency, cartilage loss, subchondral cyst formation, intraosseous geode formation, and osteophytosis. 11. Moderate cartilage thinning and loss involving the lateral compartment of the femorotibial joint space. At the mid to posterior lateral femoral condyle, at the articular surface near the intercondylar notch, there is a focal area of signal abnormality measuring 1.2 centimeters with associated adjacent reactive edema suggestive for osteochondral change; however, developing subchondral osseous injury and or stress injury and or additional etiology cannot be exclude d. If there is persistent concern for osseous metastatic disease, consider correlation with bone scan.
[2018-07-25 17:02] LABS: SF GROSS APPEARANCE CLOUDY (CLEAR)
[2018-07-25 17:38] LABS: SYNOVIAL FLUID MONO/MACROPHAGE 10 % (0-0)
--- NOTE | 2018-07-25 20:42 | CP.PCM.PN ---
Subjective - Date & Time of Evaluation Date of Evaluation: 07/25/18 Time of Evaluation: 20:41 - Subjective Subjective: Patient now combining of more pain bilateral knee. Patient underwent left knee arthrocentesis. The fluid showing evidence of low WBC count. Suggestive of inflammatory. Patient had MRI of the right knee, showing evidence of severe osteoarthritic changes. Patient also has a knee joint effusion on the right side more. But elevated ESR, elevated CRP level noted concerning the infectious process. Will get the infectious disease evaluation. On antibiotic. Physical therapy. DVT GI prophylaxis and will follow the patient Objective - Vital Signs/Intake and Output Vital Signs (last 24 hours): Temp Pulse Resp BP Pulse Ox 98.9 F 84 20 117/81 95 07/25/18 16:00 07/25/18 16:00 07/25/18 16:00 07/25/18 16:00 07/25/18 16:00 Intake and Output: 07/25/18 07/26/18 18:59 06:59 Intake Total 730 Balance 730 - Medications Medications: Current Medications Acetaminophen (Tylenol 325mg Tab) 650 mg PO Q6 PRN PRN Reason: Pain, Mild (1-3) Last Admin: 07/25/18 20:28 Dose: 650 mg Albuterol/Ipratropium (Duoneb 3 Mg/0.5 Mg (3 Ml) Ud) 3 ml INH RQ6 PRN PRN Reason: Shortness of Breath Amlodipine Besylate (Norvasc) 5 mg PO DAILY [facility] Last Admin: 07/25/18 09:43 Dose: 5 mg Docusate Sodium (Colace) 100 mg PO BID [facility] Last Admin: 07/25/18 20:30 Dose: 100 mg Hydrochlorothiazide (Microzide) 12.5 mg PO DAILY [facility] Last Admin: 07/25/18 09:43 Dose: 12.5 mg Cefepime HCl (Maxipime Iv 1 Gm Premix) 1 gm in 50 mls @ 100 mls/hr IVPB Q12H [facility]; Protocol Last Admin: 07/25/18 16:59 Dose: 100 mls/hr Ondansetron HCl (Zofran Tab) 8 mg PO Q12 PRN PRN Reason: Nausea/Vomiting Oxycodone/Acetaminophen (Percocet 5/325 Mg Tab) 1 tab PO Q8 PRN PRN Reason: Pain, moderate (4-7) Stop: 07/26/18 22:01 Last Admin: 07/25/18 14:13 Dose: 1 tab - Labs Labs: 07/25/18 08:01 07/23/18 11:20
[2018-07-26] MEDS: Cefepime IV 1 gm in Dextrose 1 GM/50 ML BAG IVPB SCH ×2 (04:37→16:35)
[2018-07-26] MEDS: Oxycodone/Acetaminophen 5/325 mg Tab PO PRN ×2 (06:03→14:37)
[2018-07-26 09:59] LABS: FLUID CRYSTALS POSITIVE (NEGATIVE)
--- NOTE | 2018-07-26 13:13 | MRI ---
Date of service: 07/26/2018 PROCEDURE: MRI left knee HISTORY: swelling , hx of ca COMPARISON: 04/29/2015 TECHNIQUE: FINDINGS: Markedly severe tricompartmental osteoarthritis with a macerated tear of the posterior horn and body medial meniscus with marginal spur formation compartment on arrows and subchondral cyst formation with marrow edema. Tear of the anterior horn and body of the lateral meniscus. High-grade partial. The posterior cruciate ligament intact. The lateral collateral ligament complex is intact. Bowing of the medial collateral ligament medially due to large marginal spurs. Large joint effusion. Roughly 3 centimeter medial popliteal cyst. Quadriceps tendon and patellar tendon of the patellar laterally with tilt. 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 IMPRESSION: Markedly severe tricompartmental osteoarthritis with a macerated tear of the posterior horn and body medial meniscus with marginal spur formation compartment on arrows and subchondral cyst formation with marrow edema. A high-grade partial ACL tear. Tear of the anterior horn and body of the lateral meniscus. Large joint effusion.
--- NOTE | 2018-07-26 15:02 | CP.PCM.PN ---
Subjective - Date & Time of Evaluation Date of Evaluation: 07/26/18 Time of Evaluation: 14:00 - Subjective Subjective: Patient seen and examined at bedside comfortable. Notes that pain is slightly improved since yesterday, however swelling in left knee has returned following aspiration. She was able to ambulate with walker during PT session with mild pa in. No other complaints. Denies CP/SOB/fever/SARAH. Objective - Vital Signs/Intake and Output Vital Signs (last 24 hours): Temp Pulse Resp BP Pulse Ox 98.3 F 96 H 20 101/69 96 07/26/18 07:34 07/26/18 07:34 07/26/18 07:34 07/26/18 07:34 07/26/18 07:34 Intake and Output: 07/26/18 07/26/18 06:59 18:59 Intake Total 740 200 Balance 740 200 - Medications Medications: Current Medications Acetaminophen (Tylenol 325mg Tab) 650 mg PO Q6 PRN PRN Reason: Pain, Mild (1-3) Last Admin: 07/26/18 09:22 Dose: 650 mg Albuterol/Ipratropium (Duoneb 3 Mg/0.5 Mg (3 Ml) Ud) 3 ml INH RQ6 PRN PRN Reason: Shortness of Breath Amlodipine Besylate (Norvasc) 5 mg PO DAILY [facility] Last Admin: 07/26/18 09:23 Dose: 5 mg Docusate Sodium (Colace) 100 mg PO BID [facility] Last Admin: 07/26/18 09:25 Dose: 100 mg Hydrochlorothiazide (Microzide) 12.5 mg PO DAILY [facility] Last Admin: 07/26/18 09:22 Dose: 12.5 mg Cefepime HCl (Maxipime Iv 1 Gm Premix) 1 gm in 50 mls @ 100 mls/hr IVPB Q12H [facility]; Protocol Last Admin: 07/26/18 04:37 Dose: 100 mls/hr Ondansetron HCl (Zofran Tab) 8 mg PO Q12 PRN PRN Reason: Nausea/Vomiting Oxycodone/Acetaminophen (Percocet 5/325 Mg Tab) 1 tab PO Q8 PRN PRN Reason: Pain, moderate (4-7) Stop: 07/26/18 22:01 Last Admin: 07/26/18 14:37 Dose: 1 tab - Labs Labs: 07/25/18 08:01 07/23/18 11:20 - Extremities Exam Additional comments: R knee: moderate swelling, mod effusion limited ROM 2nd to pain sensation intact SP/DP/TN motor intact EHL/FHL/TA/G pedal pulses intact comp soft NT L knee: mild swelling, mod effusion limited ROM 2nd to pain sensation intact SP/DP/TN motor intact EHL/FHL/TA/G pedal pulses intact comp soft NT Assessment and Plan (1) Degenerative arthritis of knee, bilateral Assessment & Plan: PT/OT WBAT MRI L knee shows Degenerative joint disease ICE and elevate knees Recommend start NSAID's Abx as per ID No acute orthopedic intervention at this time Status: Acute (2) Gout of left knee Assessment & Plan: Recommend start anti gout medication Status: Acute Radiology Interpretation - Notes: Notes:: Accession No. : [id number] Patient Name / ID : BRONSON Reyes / [id number] Exam Date : 07/25/2018 13:17:19 ( Approved ) Study Comment : Sex / Age : F / 67Y Creator : Tucker Francis MD Dictator : Tucker Francis MD Admiralty Lawyer : Tractor Driver Teamster : Tucker Francis MD Approver2 : Report Date : 07/25/2018 14:25:14 My Comment : MRI right knee HISTORY: Cancer. Swelling. Pain. Comparison: X-ray dated 07/24/2018 Technique: Multi-echo multiplanar sequences were performed through the right knee without the use of intravenous contrast. Findings: Large suprapatellar joint effusion. In addition, there are patchy areas of reactive increased T2 signal seen within the distal femur and proximal tibia which are nonspecific. Sequelae of acute infectious and or inflammatory changes cannot be excluded. Correlation with joint aspiration and culture sampling is recommended to exclude underlying septic joint. Nonvisualization of the visualized anterior cruciate ligament at its expected location at the intercondylar notch suggestive for a chronic complete tear. Posterior cruciate ligament is preserved. Complex tear involving the body and posterior horn of the medial meniscus with deficiency of a portion of the body and posterior horn. Globular increased signal within the body of the lateral meniscus suggestive for intrasubstance degeneration and or intrasubstance partial tearing. High-grade sprain of the proximal and midportion of the medial collateral ligament. Moderate grade sprain of the lateral collateral ligament complex structures. Quadriceps tendon is preserved. Patellar tendon is preserved. Moderate grade strains of the medial and lateral patellar retinaculum. Severe cartilage thinning and loss overlying the patellar apex and medial patellar facet extending to the subchondral joint. Severe cartilage loss involving the medial compartment of the femorotibial joint space. Associated prominent signal change in the adjacent marrow of the mid to posterior medial proximal tibia and medial femoral condyle suggestive for severe osteochondral change. In addition, there is associated prominent subchondral cyst formation and osteophytosis. At the posterior aspect of the medial proximal tibia ,near the intercondylar notch, there is a large 1.6 centimeter cystic lesion which may represent a prominent subchondral cyst versus in traosseous geode versus additional etiology. Moderate cartilage thinning and loss involving the lateral compartment of the femorotibial joint space. At the mid to posterior lateral femoral condyle, at the articular surface near the intercondylar notch, there is a focal area of signal abnormality measuring 1.2 centimeters with associated adjacent reactive edema suggestive for osteochondral change; however, developing subchondral osseous injury and or stress injury and or additional etiology cannot be excluded. Impression: 1. Large suprapatellar joint effusion. In addition, there are patchy areas of reactive increased T2 signal seen within the distal femur and proximal tibia which are nonspecific. Sequelae of acute infectious and or inflammatory changes cannot be excluded. Correlation with joint aspiration and culture sampling is recommended to exclude underlying septic joint. 2. Nonvisualization of the visualized anterior cruciate ligament at its expected location at the intercondylar notch suggestive for a chronic complete tear. 3. Complex tear involving the body and posterior horn of the medial meniscus with deficiency of a portion of the body and posterior horn. 4. Globular increased signal within the body of the lateral meniscus suggestive for intrasubstance degeneration and or intrasubstance partial tearing. 5. High-grade sprain of the proximal and midportion of the medial collateral ligament. 6. Moderate grade sprain of the lateral collateral ligament complex structures. 7. Moderate grade strains of the medial and lateral patellar retinaculum. 8. Severe cartilage thinning and loss overlying the patellar apex and medial patellar facet extending to the subchondral joint. 9. Severe cartilage loss involving the medial compartment of the femorotibial joint space. Associated prominent signal change in the adjacent marrow of the mid to posterior medial proximal tibia and medial femoral condyle suggestive for severe osteochondral change. In addition, there is associated prominent subchondral cyst formation and osteophytosis. At the posterior aspect of the medial proximal tibia ,near the intercondylar notch, there is a large 1.6 centimeter cystic lesion which may represent a prominent subchondral cyst versus intraosseous geode versus additional etiology. 10. Severe medial compartment osteoarthrosis with meniscal deficiency, cart ilage loss, subchondral cyst formation, intraosseous geode formation, and osteophytosis. 11. Moderate cartilage thinning and loss involving the lateral compartment of the femorotibial joint space. At the mid to posterior lateral femoral condyle, at the articular surface near the intercondylar notch, there is a focal area of signal abnormality measuring 1.2 centimeters with associated adjacent reactive edema suggestive for osteochondral change; however, developing subchondral osseous injury and or stress injury and or additional etiology cannot be excluded. If there is persistent concern for osseous metastatic disease, consider correlation with bone scan.
--- NOTE | 2018-07-26 19:35 | CP.PCM.CON ---
History of Present Illness - History of Present Illness History of Present Illness: 67F complains of R>>L knee pain, worsening over last week. Patient says she saw Dr. Jones in his office and he drained 3 tubes of yellow fluid from her right knee approx 10 days ago, and then they called her and told her to come to hospital. She says her knee isn't feeling any better from taking the antibiotics Dr. Jones prescribed. referred fonohelia TAMIA mary for antiubiotic management cultures sent Patient has right breast cancer with +nodes, completed 8 months of chemo early June. Patient has not had breast surgery yet. No known bony involvement or distant mets. No history of gout per patient Patient had recent sore throat approx 2 weeks ago Review of Systems - Review of Systems All systems: reviewed and no additional remarkable complaints except - Constitutional Constitutional: As Per HPI - EENT Eyes: absent: As Per HPI, Blind Spots, Blurred Vision, Change in Vision, Decreased Night Vision, Diplopia, Discharge, Dry Eye, Exophthalmos, Floaters, Irritation, Itchy Eyes, Loss of Peripheral Vision, Pain, Photophobia, Requires Corrective Lenses, Sees Flashes, Spots in Vision, Tunnel Vision, Other Visual Disturbances, Loss of Vision, Other Ears: absent: As Per HPI, Decreased Hearing, Ear Discharge, Ear Pain, Tinnitus, Abnormal Hearing, Disequilibrium, Dizziness, Other Nose/Mouth/Throat: absent: As Per HPI, Epistaxis, Nasal Congestion, Nasal Discharge, Nasal Obstruction, Nasal Trauma, Nose Pain, Post Nasal Drip, Sinus Pain, Sinus Pressure, Bleeding Gums, Change in Voice, Dental Pain, Dry Mouth, Dysphagia, Halitosis, Hoarsness, Lip Swelling, Mouth Lesions, Mouth Pain, Odynophagia, Sore Throat, Throat Swelling, Tongue Swelling, Facial Pain, Neck Pain, Neck Mass, Other - Breasts Breasts: absent: As Per HPI, Change in Shape, Mass, Pain, Nipple Discharge, Nipple Inversion, Skin Changes, Swelling, Other - Cardiovascular Cardiovascular: absent: As Per HPI, Acrocyanosis, Chest Pain, Chest Pain at Rest, Chest Pain with Activity, Claudication, Diaphoresis, Dyspnea, Dyspnea on Exertion, Edema, Irregular Heart Rhythm, Pain Radiating to Arm/Neck/Jaw, Leg Edema, Leg Ulcers, Lightheadedness, Orthopnea, Palpitations, Paroxysmal Nocturnal Dyspnea, Pedal Edema, Radiating Pain, Rapid Heart Rate, Slow Heart Rate, Syncope, Other - Respiratory Respiratory: absent: As Per HPI, Cough, Dyspnea, Hemoptysis, Dyspnea on Exertion, Wheezing, Snoring, Stridor, Pain on Inspiration, Chest Congestion, Excessive Mucous Production, Change in Mucous Color, Pain with Coughing, Other - Gastrointestinal Gastrointestinal: absent: As Per HPI, Abdominal Pain, Belching, Bloating, Change in Bowel Habits, Change in Stool Character, Coffee Ground Emesis, Constipation, Cramping, Diarrhea, Dyspepsia, Dysphagia, Early Satiety, Excessive Flatus, Fecal Incontinence, Heartburn, Hematemesis, Hematochezia, Loose Stools, Melena, Nausea, Odynophagia, Temesmus, Vomiting, Other - Genitourinary Genitourinary: absent: As Per HPI, Change in Urinary Stream, Difficulty Urinating, Dysuria, Flank Pain, Hematuria, Pyuria, Nocturia, Urinary Inc ontinence, Urinary Frequency, Urinary Hesitance, Urinary Urgency, Voiding Freq/Small Amts, Freq UTI, Hx Renal/Bladder Calculi, Hx /Renal Surgery, Bladder Distension, Other - Reproductive: Female Reproductive:Female: absent: As Per HPI, Amenorrhea, Amenorrhea/ Control, Currently Menstual, Cycle <21 Days, Cycle >35 Days, Cycle Variable, Menses 1-7 Days, Menses >/= 8 Days, Menses Variable, Cycle > 4 Weeks Between, No Menses for 6 Months, Heavy Menses, Light Menses, Normal Menses, Spotting Between Cycles, S/P Hysterectomy, Menopausal, Post Menopausal, Premenarche, Abnormal Vaginal Bleeding, Dysmenorrhea, Dyspareunia, Genital Lesions, Genital Pruritis, Pelvic Pain, Prolapse Symptoms, Sexual Dysfunction, Vaginal Discharge, Vaginal Dryness, Vaginal Odor, Vaginal Pruritis, Other - Menstruation Menstruation: absent: As Per HPI, Amenorrhea, Amenorrhea/ Control, Currently Menstual, Cycle <21 Days, Cycle >35 Days, Cycle Variable, Menses 1-7 Days, Menses >/= 8 Days, Menses Variable, Cycle > 4 Weeks Between, No Menses for 6 Months, Heavy Menses, Light Menses, Normal Menses, Spotting Between Cycles, S/P Hysterectomy, Menopausal, Post Menopausal, Premenarche, Abnormal Vaginal Bleeding, Dysmenorrhea, Other - Musculoskeletal Musculoskeletal: As Per HPI - Integumentary Integumentary: As Per HPI - Neurological Neurological: absent: As Per HPI, Abnormal Gait, Abnormal Hearing, Abnormal Movements, Abnormal Speech, Behavioral Changes, Burning Sensations, Confusion, Convulsions, Disequilibrium, Dizziness, Numbness, Focal Weakness, Frequent Falls, Headaches, Lack of Coordination, Loss of Vision, Memory Loss, Paresthesias, Radicular Pain, Restless Legs, Sensory Deficit, Syncope, Tingling, Tremor, Vertigo, Weakness, Other Visual Disturbances, Other - Psychiatric Psychiatric: absent: As Per HPI, Abnormal Sleep Pattern, Anhedonia, Anxiety, Auditory Hallucinations, Behavioral Changes, Change in Appetite, Change in Libido, Confusion, Depression, Difficulty Concentrating, Hallucinations, Homicidal Ideation, Hopelessness, Irritability, Memory Loss, Mood Swings, Panic Attacks, Paranoia, Suicidal Ideation, Visual Hallucinations, Tactile Hallucinations, Other - Endocrine Endocrine: absent: As Per HPI, Change in Body Appearance, Change in Libido, Cold Intolorance, Deepening of Voice, Excessive Sweating, Fatigue, Flushing, Heat Intolorance, Increase in Ring/Shoe/Hat Size, Palpitations, Polydipsia, Polyphagia, Polyuria, Other - Hematologic/Lymphatic Hematologic: absent: As Per HPI, Easy Bleeding, Easy Bruising, Lymphadenopathy, Other Past Patient History - Infectious Disease Hx of Infectious Diseases: None - Tetanus Immunizations Tetanus Immunization: Unknown - Past Medical History & Family History Past Medical History?: Yes Past Family History: Reviewed and not pertinent - Past Social History Smoking Status: Former Smoker - CARDIAC Hx Hypertension: Yes - PULMONARY Hx Respiratory Disorders: No - NEUROLOGICAL Hx Neurological Disorder: No - HEENT Hx HEENT Problems: No - RENAL Hx Chronic Kidney Disease: No - ENDOCRINE/METABOLIC Hx Endocrine Disorders: No - INTEGUMENTARY Hx Dermatological Problems: No - MUSCULOSKELETAL/RHEUMATOLOGICAL Hx Arthritis: Yes (knees) - GASTROINTESTINAL Hx Diverticulitis: Yes - GENITOURINARY/GYNECOLOGICAL Hx Genitourinary Disorders: No - PSYCHIATRIC Hx Substance Use: Yes (cannabis) - SURGICAL HISTORY Hx Appendectomy: Yes Hx Cholecystectomy: Yes Hx Tonsillectomy: Yes - ANESTHESIA Hx Anesthesia: Yes Hx Anesthesia Reactions: No Hx Malignant Hyperthermia: No Meds Allergies/Adverse Reactions: Allergies Allergy/AdvReac Type Severity Reaction Status Date / Time enalapril Allergy RASH Verified 03/14/18 18:31 iodine Allergy SWELLING Verified 03/14/18 18:31 lisinopril Allergy SWELLING Verified 18 18:31 shellfish derived AdvReac Severe ITCHING Verified 03/14/18 18:31 metronidazole [From Flagyl] AdvReac ANAPHYLAXIS Verified 03/14/18 18:31 - Medications Medications: Current Medications Acetaminophen (Tylenol 325mg Tab) 650 mg PO Q6 PRN PRN Reason: Pain, Mild (1-3) Last Admin: 07/26/18 09:22 Dose: 650 mg Albuterol/Ipratropium (Duoneb 3 Mg/0.5 Mg (3 Ml) Ud) 3 ml INH RQ6 PRN PRN Reason: Shortness of Breath Amlodipine Besylate (Norvasc) 5 mg PO DAILY [facility] Last Admin: 07/26/18 09:23 Dose: 5 mg Docusate Sodium (Colace) 100 mg PO BID [facility] Last Admin: 07/26/18 18:10 Dose: 100 mg Hydrochlorothiazide (Microzide) 12.5 mg PO DAILY [facility] Last Admin: 07/26/18 09:22 Dose: 12.5 mg Cefepime HCl (Maxipime Iv 1 Gm Premix) 1 gm in 50 mls @ 100 mls/hr IVPB Q12H [facility]; Protocol Last Admin: 07/26/18 16:35 Dose: 100 mls/hr Ondansetron HCl (Zofran Tab) 8 mg PO Q12 PRN PRN Reason: Nausea/Vomiting Oxycodone/Acetaminophen (Percocet 5/325 Mg Tab) 1 tab PO Q8 PRN PRN Reason: Pain, moderate (4-7) Stop: 07/26/18 22:01 Last Admin: 07/26/18 14:37 Dose: 1 tab Polyethylene Glycol (Miralax) 17 gm PO QID [facility] Physical Exam - Constitutional Appears: Non-toxic, Chronically Ill - Head Exam Head Exam: NORMOCEPHALIC - Eye Exam Eye Exam: PERRL - ENT Exam ENT Exam: Mucous Membranes Dry - Neck Exam Neck exam: Negative for: Lymphadenopathy - Respiratory Exam Respiratory Exam: Decreased Breath Sounds - Cardiovascular Exam Cardiovascular Exam: REGULAR RHYTHM - GI/Abdominal Exam GI & Abdominal Exam: Diminished Bowel Sounds, Soft - Rectal Exam Rectal Exam: Deferred - Exam Exam: NORMAL INSPECTION - Extremities Exam Extremities exam: Positive for: joint swelling, tenderness, pedal pulses present. Negative for: calf tenderness, pedal edema - Back Exam Back exam: absent: CVA tenderness (L), CVA tenderness (R) - Neurological Exam Neurological exam: Alert, CN II-XII Intact, Oriented x3, Reflexes Normal - Psychiatric Exam Psychiatric exam: Normal Mood - Skin Skin Exam: Dry, Intact Results - Vital Signs Recent Vital Signs: Last Vital Signs Temp 98 F 07/26/18 16:00 Pulse 80 07/26/18 16:00 Resp 20 07/26/18 16:00 BP 111/71 07/26/18 16:00 Pulse Ox 96 07/26/18 16:00 - Labs Result Diagrams: 07/25/18 08:01 07/23/18 11:20 Labs: Laboratory Results - last 24 hr 07/25/18 15:45 Fluid Crystals Positive H Synovial Crystal Type Monosodium urate - Impressions Impression: MRI Knee 1. Large suprapatellar joint effusion. In addition, there are patchy areas of reactive increased T2 signal seen within the distal femur and proximal tibia which are nonspecific. Sequelae of acute infectious and or inflammatory changes cannot be excluded. Correlation with joint aspiration and culture sampling is recommended to exclude underlying septic joint. 2. Nonvisualization of the visualized anterior cruciate ligament at its expected location at the intercondylar notch suggestive for a chronic complete tear. 3. Complex tear involving the body and posterior horn of the medial meniscus with deficiency of a portion of the body and posterior horn. 4. Globular increased signal within the body of the lateral meniscus suggestive for intrasubstance degeneration and or intrasubstance partial tearing. 5. High-grade sprain of the proximal and midportion of the medial collateral ligament. 6. Moderate grade sprain of the lateral collateral ligament complex structures. 7. Moderate grade strains of the medial and lateral patellar retinaculum. 8. Severe cartilage thinning and loss overlying the patellar apex and medial patellar facet extending to the subchondral joint. 9. Severe cartilage loss involving the medial compartment of the femorotibial joint space. Associated prominent signal change in the adjacent marrow of the mid to posterior medial proximal tibia and medial femoral condyle suggestive for severe osteochondral change. In addition, there is associated prominent subchondral cyst formation and osteophytosis. At the posterior aspect of the medial proximal tibia ,near the intercondylar notch, there is a large 1.6 centimeter cystic lesion which may represent a prominent subchondral cyst versus intraosseous geode versus additional etiology. 10. Severe medial compartment osteoarthrosis with meniscal deficiency, cartilage loss, subchondral cyst formation, intraosseous geode formation, and osteophytosis. 11. Moderate cartilage thinning and loss involving the lateral compartment of the femorotibial joint space. At the mid to posterior lateral femoral condyle, at the articular surface near the intercondylar notch, there is a focal area of signal abnormality measuring 1.2 centimeters with associated adjacent reactive edema suggestive for osteochondral change; however, developing subchondral osseous injury and or stress injury and or additional etiology cannot be excluded. Assessment & Plan (1) Degenerative arthritis of knee, bilateral Status: Acute (2) Degenerative arthritis of right knee Status: Acute (3) Effusion of knee joint right Status: Acute (4) Effusion, left knee Status: Acute (5) Gout of left knee Status: Acute (6) Primary osteoarthritis of left knee Status: Acute - Assessment and Plan (Free Text) Assessment: await cultures cont antiinflammatory IV antibiotics
[2018-07-26] MEDS: POLYETHYLENE GLYCOL 3350 17 GM/Dose PACKET PO SCH (21:13)
[2018-07-27] MEDS: Cefepime IV 1 gm in Dextrose 1 GM/50 ML BAG IVPB SCH ×2 (04:14→16:30)
[2018-07-27 08:22] VITALS: RESP 20
[2018-07-27] MEDS: POLYETHYLENE GLYCOL 3350 17 GM/Dose PACKET PO SCH ×4 (10:32→22:46)
[2018-07-27] MEDS: Oxycodone/Acetaminophen 5/325 mg Tab PO PRN ×2 (10:40→17:53)
[2018-07-27] MEDS ORDERED: MethylPREDNISolone Depo 40 mg/ml Inj INJ ONE (11:16)
[2018-07-27] MEDS ORDERED: Bupivacaine HCl 0.5% PF (10 ml) Inj IJ ONE (11:16)
--- NOTE | 2018-07-27 11:30 | CP.PCM.PN ---
Subjective - Date & Time of Evaluation Date of Evaluation: 07/27/18 Time of Evaluation: 11:27 - Subjective Subjective: Patient states her knee pain is still ssevere L >>R at this time. She says she cant put weight on her left knee due to pain. Denies CP/S OB/dizziness/numbness/tingling. She believes last injection was 1 year ago with steroids in her knees. Review of Systems - Review of Systems All systems: reviewed and no additional remarkable complaints except - Cardiovascular Cardiovascular: UNREMARKABLE - Respiratory Respiratory: UNREMARKABLE - Musculoskeletal Musculoskeletal: As Par HPI - Integumentary Integumentary: UNREMARKABLE - Neurological Neurological: UNREMARKABLE - Hematologic/Lymphatic Hematologic: UNREMARKABLE Objective - Vital Signs/Intake and Output Vital Signs (last 24 hours): Temp Pulse Resp BP Pulse Ox 99.2 F 85 20 116/81 96 07/27/18 07:36 07/27/18 07:36 07/27/18 07:36 07/27/18 07:36 07/27/18 07:36 Intake and Output: 07/27/18 07/27/18 06:59 18:59 Intake Total 50 Output Total 600 Balance -550 - Medications Medications: Current Medications Acetaminophen (Tylenol 325mg Tab) 650 mg PO Q6 PRN PRN Reason: Pain, Mild (1-3) Last Admin: 07/26/18 22:56 Dose: 650 mg Albuterol/Ipratropium (Duoneb 3 Mg/0.5 Mg (3 Ml) Ud) 3 ml INH RQ6 PRN PRN Reason: Shortness of Breath Amlodipine Besylate (Norvasc) 5 mg PO DAILY [facility] Last Admin: 07/27/18 10:31 Dose: 5 mg Docusate Sodium (Colace) 100 mg PO BID [facility] Last Admin: 07/27/18 10:31 Dose: 100 mg Hydrochlorothiazide (Microzide) 12.5 mg PO DAILY [facility] Last Admin: 07/27/18 10:31 Dose: 12.5 mg Cefepime HCl (Maxipime Iv 1 Gm Premix) 1 gm in 50 mls @ 100 mls/hr IVPB Q12H [facility]; Protocol Last Admin: 07/27/18 04:14 Dose: 100 mls/hr Ondansetron HCl (Zofran Tab) 8 mg PO Q12 PRN PRN Reason: Nausea/Vomiting Oxycodone/Acetaminophen (Percocet 5/325 Mg Tab) 1 tab PO Q8 PRN PRN Reason: Pain, severe (8-10) Stop: 07/30/18 23:18 Last Admin: 07/27/18 10:40 Dose: 1 tab Polyethylene Glycol (Miralax) 17 gm PO QID [facility] Last Admin: 07/27/18 10:32 Dose: Not Given - Labs Labs: 07/25/18 08:01 07/23/18 11:20 - Constitutional Appears: Well, No Acute Distress - Head Exam Head Exam: ATRAUMATIC - Respiratory Exam Respiratory Exam: NORMAL BREATHING PATTERN - Cardiovascular Exam Additional comments: +DP pulses - Extremities Exam Additional comments: Left knee: mild to mod effusion, still improved from last exam. Not warm, generalized tenderness. MIld pain with ROM. Right knee: warm. tender. No erythema. Mild pain with ROM, clinically appears a little less symptomatic sitting in chair with knees flexed to 90, comfortable Calves soft NT neg homans sensation intact - Neurological Exam Neurological Exam: Alert, Awake, Oriented x3 Neuro motor strength exam: Left Lower Extremity: 5, Right Lower Extremity: 5 - Psychiatric Exam Psychiatric exam: Normal Affect, Normal Mood - Skin Skin Exam: Dry, Intact, Normal Color, Warm Assessment and Plan (1) Acute gout of left knee Assessment & Plan: more symptomatic knee +monosodium urate crystals prelim cultures negative cell count consistent with gout and OA exacerbation will do steroid injection at this time in left knee only Knee injection: Risks, benefits, alternatives of knee intraarticular inection were explained to the patient in detail, patient verbally consented to procedure. The patients right knee was prepped in the usual sterile fashion with chloroprep, then inserted a 21-gauge, 1 inch needle into the knee joint using anterior medial approach. Through this needle a solution of 40mg Depo- medrol and 4cc 0.5% Marcaine was given. The needle was removed and a sterile dressing was applied. Patient tolerated the procedure well, and felt relief post procedure. Status: Acute (2) Effusion of knee joint right Assessment & Plan: MRI findings suspicious for infection, clinically a little better Dr. Whipple notified of above, no orthopedic intervention planned at this time, continue IV antibiotics and monitor response Status: Acute (3) Degenerative arthritis of right knee Status: Acute (4) Primary osteoarthritis of left knee Status: Acute Procedures Attestation:: I certify that I have explained the specified Operation(s) or Procedure(s), risks, benefits and reasonable alternatives to the Patient and/or other person responsible. The opportunity was given to ask questions and all questions answered - Joint Aspiration/Injection Joint #1 Consent Obtained: Verbal Consent Time Out Performed: Yes Side of Body: Left Joint Aspirated: Knee Ultrasound Guidance Used: No Skin Prep: Chlorprep Needle Size Used: Other (21g) Medication Injected: Methylprednisolone, Other (marcaine 0.5%) Amout of Medication Injected: 40 (40mg depo, 5cc marcaine) Patient Tolorated Procedure: Well Complications: None
[2018-07-27 13:41] LABS: BASO # 0.1 K/uL (0.0-0.2); EOS # 0.4 K/uL (0.0-0.7); EOS % 6.8 % (0.0-4.0); HEMOGLOBIN 12.1 g/dL (11.0-16.0); LYMPH # 0.9 K/uL (1.0-4.3); LYMPH % 14.1 % (20.0-40.0); MEAN CELL VOLUME 96.1 fL (81.0-99.0); MEAN CORPUSCULAR HEMOGLOBIN 32.9 pg (27.0-31.0); MEAN CORPUSCULAR HGB CONC 34.3 g/dL (33.0-37.0); MEAN PLATELET VOLUME 7.1 fL (7.2-11.7); MONO # 0.7 K/uL (0.0-0.8); MONO % 11.2 % (0.0-10.0); NEUT # 4.2 K/uL (1.8-7.0); NEUT % 66.9 % (50.0-75.0); RBC 3.66 Mil/uL (3.80-5.20); RED CELL DISTRIBUTION WIDTH 15.3 % (11.5-14.5); WHITE BLOOD COUNT 6.3 K/uL (4.8-10.8)
[2018-07-27 13:56] LABS: BLOOD UREA NITROGEN 8 mg/dL (7-17); CALCIUM 10.2 mg/dl (8.6-10.4); GFR NON-AFRICAN AMERICAN > 60
[2018-07-27] MEDS: Lidocaine 5% Patch TD SCH (18:25)
--- NOTE | 2018-07-27 19:20 | CP.PCM.PN ---
Subjective - Date & Time of Evaluation Date of Evaluation: 07/27/18 Time of Evaluation: 08:00 - Subjective Subjective: no fever cultures neg thus far Objective - Vital Signs/Intake and Output Vital Signs (last 24 hours): Temp Pulse Resp BP Pulse Ox 99.3 F 108 H 20 121/81 93 L 07/27/18 15:54 07/27/18 15:54 07/27/18 15:54 07/27/18 15:54 07/27/18 15:54 Intake and Output: 07/27/18 07/28/18 18:59 06:59 Intake Total 240 Output Total 1000 Balance -760 - Medications Medications: Current Medications Acetaminophen (Tylenol 325mg Tab) 650 mg PO Q6 PRN PRN Reason: Pain, Mild (1-3) Last Admin: 07/26/18 22:56 Dose: 650 mg Albuterol/Ipratropium (Duoneb 3 Mg/0.5 Mg (3 Ml) Ud) 3 ml INH RQ6 PRN PRN Reason: Shortness of Breath Amlodipine Besylate (Norvasc) 5 mg PO DAILY [facility] Last Admin: 07/27/18 10:31 Dose: 5 mg Docusate Sodium (Colace) 100 mg PO BID [facility] Last Admin: 07/27/18 17:53 Dose: 100 mg Hydrochlorothiazide (Microzide) 12.5 mg PO DAILY [facility] Last Admin: 07/27/18 10:31 Dose: 12.5 mg Cefepime HCl (Maxipime Iv 1 Gm Premix) 1 gm in 50 mls @ 100 mls/hr IVPB Q12H [facility]; Protocol Last Admin: 07/27/18 16:30 Dose: 100 mls/hr Lidocaine (Lidoderm) 1 ea TD DAILY [facility] Last Admin: 07/27/18 18:25 Dose: 1 ea Ondansetron HCl (Zofran Tab) 8 mg PO Q12 PRN PRN Reason: Nausea/Vomiting Oxycodone/Acetaminophen (Percocet 5/325 Mg Tab) 1 tab PO Q8 PRN PRN Reason: Pain, severe (8-10) Stop: 07/30/18 23:18 Last Admin: 07/27/18 17:53 Dose: 1 tab Polyethylene Glycol (Miralax) 17 gm PO QID [facility] Last Admin: 07/27/18 17:53 Dose: Not Given - Labs Labs: 10/26/18 13:31 07/27/18 13:31 - Constitutional Appears: Non-toxic, Chronically Ill - Head Exam Head Exam: NORMOCEPHALIC - ENT Exam ENT Exam: Mucous Membranes Dry - Neck Exam Neck Exam: absent: Lymphadenopathy - Respiratory Exam Respiratory Exam: Decreased Breath Sounds - Cardiovascular Exam Cardiovascular Exam: REGULAR RHYTHM - GI/Abdominal Exam GI & Abdominal Exam: Distended - Rectal Exam Rectal Exam: Deferred - Extremities Exam Extremities Exam: Pedal Edema, Tenderness. absent: Calf Tenderness, Normal Inspection Assessment and Plan (1) Degenerative arthritis of knee, bilateral Status: Acute (2) Degenerative arthritis of right knee Status: Acute (3) Effusion of knee joint right Status: Acute (4) Effusion, left knee Status: Deleted (5) Gout of left knee Status: Acute (6) Primary osteoarthritis of left knee Status: Acute - Assessment and Plan (Free Text) Assessment: cont rx as per Ortho
[2018-07-28] MEDS: Cefepime IV 1 gm in Dextrose 1 GM/50 ML BAG IVPB SCH ×2 (04:14→17:00)
[2018-07-28] MEDS: Oxycodone/Acetaminophen 5/325 mg Tab PO PRN ×2 (04:38→21:42)
[2018-07-28 07:36] LABS: BLOOD UREA NITROGEN 9 mg/dL (7-17); CALCIUM 9.9 mg/dl (8.6-10.4); GFR NON-AFRICAN AMERICAN > 60; URIC ACID 2.8 mg/dL (2.2-7.5)
[2018-07-28] MEDS: Lidocaine 5% Patch TD SCH ×2 (09:52→10:43)
[2018-07-28] MEDS: POLYETHYLENE GLYCOL 3350 17 GM/Dose PACKET PO SCH ×2 (09:53→10:43)
[2018-07-28] MEDS ORDERED: Potassium Chloride 20 mEq ER Tab PO ONE (14:00)
[2018-07-28] MEDS ORDERED: POLYETHYLENE GLYCOL 3350 17 GM/Dose PACKET PO PRN (14:02)
[2018-07-28] MEDS ORDERED: Aluminum Hydroxide/Magnesium Hydroxide Susp (30 mL) PO ONE (19:16)
[2018-07-29] MEDS: Cefepime IV 1 gm in Dextrose 1 GM/50 ML BAG IVPB SCH (03:56)
[2018-07-29 07:52] VITALS: BP 114/77; PULSE 82; TEMP 98.6
[2018-07-29] MEDS ORDERED: Pantoprazole 40 mg EC Tab PO SCH (10:00)
[2018-07-29] MEDS: Lidocaine 5% Patch TD SCH (10:15)
--- NOTE | 2018-07-29 12:45 | CP.PCM.DIS ---
Provider - Provider Date of Admission: 07/23/18 12:16 Attending physician: Luz Marina Jones MD Hospital Course - Lab Results Lab Results: Micro Results 07/25/18 15:45 Knee - Left Gram Stain - Final 07/25/18 15:45 Knee - Left Wound Culture - Final No Growth 07/23/18 14:00 Blood Blood Culture - Final NO GROWTH AFTER 5 DAYS 07/23/18 14:00 Blood Gram Stain - Final TEST NOT PERFORMED 07/23/18 11:00 Blood Blood Culture - Final NO GROWTH AFTER 5 DAYS 07/23/18 11:00 Blood Gram Stain - Final TEST NOT PERFORMED 07/25/18 15:45 Knee - Left Gram Stain - Final 07/25/18 15:45 Knee - Left Wound Culture - Final No Growth 07/25/18 15:45 Knee - Left Gram Stain - Final 07/25/18 15:45 Knee - Left Wound Culture - Final No Growth Most Recent Lab Values WBC 6.3 K/uL (4.8-10.8) 07/27/18 13:31 RBC 3.66 Mil/uL (3.80-5.20) L 07/27/18 13:31 Hgb 12.1 g/dL (11.0-16.0) 07/27/18 13:31 Hct 35.1 % (34.0-47.0) 07/27/18 13:31 MCV 96.1 fL (81.0-99.0) 07/27/18 13:31 MCH 32.9 pg (27.0-31.0) H 07/27/18 13:31 MCHC 34.3 g/dL (33.0-37.0) 07/27/18 13:31 RDW 15.3 % (11.5-14.5) H 07/27/18 13:31 Plt Count 389 K/uL (130-400) 07/27/18 13:31 MPV 7.1 fL (7.2-11.7) L 07/27/18 13:31 Neut % (Auto) 66.9 % (50.0-75.0) 07/27/18 13:31 Lymph % (Auto) 14.1 % (20.0-40.0) L 07/27/18 13:31 Richardson % (Auto) 11.2 % (0.0-10.0) H 07/27/18 13:31 Eos % (Auto) 6.8 % (0.0-4.0) H 07/27/18 13:31 Baso % (Auto) 1.0 % (0.0-2.0) 07/27/18 13:31 Neut # (Auto) 4.2 K/uL (1.8-7.0) 07/27/18 13:31 Lymph # (Auto) 0.9 K/uL (1.0-4.3) L 07/27/18 13:31 Richardson # (Auto) 0.7 K/uL (0.0-0.8) 07/27/18 13:31 Eos # (Auto) 0.4 K/uL (0.0-0.7) 07/27/18 13:31 Baso # (Auto) 0.1 K/uL (0.0-0.2) 07/27/18 13:31 ESR 118 mm/hr (0-20) H 07/25/18 08:01 pO2 16 mm/Hg (30-55) L 07/23/18 11:24 VBG pH 7.34 (7.32-7.43) 07/23/18 11:24 VBG pCO2 58 mmHg (40-60) 07/23/18 11:24 VBG HCO3 25.8 mmol/L 07/23/18 11:24 VBG Total CO2 33.1 mmol/L (22-28) H 07/23/18 11:24 VBG O2 Sat (Calc) 21.2 % (40-65) L 07/23/18 11:24 VBG Base Excess 3.9 mmol/L (0.0-2.0) H 07/23/18 11:24 VBG Potassium 4.0 mmol/L (3.6-5.2) 07/23/18 11:24 Sodium 136.0 mmol/l (132-148) 07/23/18 11:24 Chloride 100.0 mmol/L (98-107) 07/23/18 11:24 Glucose 111 mg/dl (65-105) H 07/23/18 11:24 Lactate 1.5 mmol/L (0.7-2.1) 07/23/18 11:24 Sodium 135 mmol/L (132-148) 07/28/18 07:15 Potassium 3.4 mmol/L (3.6-5.2) L 07/28/18 07:15 Chloride 95 mmol/L (98-107) L 07/28/18 07:15 Carbon Dioxide 30 mmol/L (22-30) 07/28/18 07:15 Anion Gap 14 (10-20) 07/28/18 07:15 BUN 9 mg/dL (7-17) 07/28/18 07:15 Creatinine 0.7 mg/dL (0.7-1.2) 07/28/18 07:15 Est GFR ( Amer) > 60 07/28/18 07:15 Est GFR (Non-Af Amer) > 60 07/28/18 07:15 Random Glucose 121 mg/dL (65-105) H 07/28/18 07:15 Uric Acid 2.8 mg/dL (2.2-7.5) 07/28/18 07:15 Calcium 9.9 mg/dl (8.6-10.4) 07/28/18 07:15 Total Bilirubin 0.5 mg/dL (0.2-1.3) 07/23/18 11:20 AST 35 U/L (14-36) 07/23/18 11:20 ALT 16 U/L (9-52) 07/23/18 11:20 Alkaline Phosphatase 111 U/L (38-126) 07/23/18 11:20 C-Reactive Protein 81.40 mg/L (0.0-9.9) H 07/25/18 08:01 Total Protein 7.7 g/dL (6.3-8.3) 07/23/18 11:20 Albumin 4.0 g/dL (3.5-5.0) 07/23/18 11:20 Globulin 3.7 gm/dL (2.2-3.9) 07/23/18 11:20 Albumin/Globulin Ratio 1.1 (1.0-2.1) 07/23/18 11:20 Procalcitonin < 0.05 NG/ML (0.19-0.49) L 07/27/18 06:12 Venous Blood Potassium 4.0 mmol/L (3.6-5.2) 07/23/18 11:24 Urine Color Straw (YELLOW) 07/23/18 13:33 Urine Clarity Clear (Clear) 07/23/18 13:33 Urine pH 7.0 (5.0-8.0) 07/23/18 13:33 Ur Specific Canmer 1.004 (1.003-1.030) 07/23/18 13:33 Urine Protein Negative mg/dL (NEGATIVE) 07/23/18 13:33 Urine Glucose (UA) Normal mg/dL (Normal) 07/23/18 13:33 Urine Ketones Negative mg/dL (NEGATIVE) 07/23/18 13:33 Urine Blood Negative (NEGATIVE) 07/23/18 13:33 Urine Nitrate Negative (NEGATIVE) 07/23/18 13:33 Urine Bilirubin Negative (NEGATIVE) 07/23/18 13:33 Urine Urobilinogen Normal mg/dL (0.2-1.0) 07/23/18 13:33 Ur Leukocyte Esterase Neg Khoa/uL (Negative) 07/23/18 13:33 Urine WBC (Auto) < 1 /hpf (0-5) 07/23/18 13:33 Ur Squamous Epith Cells 1 /hpf (0-5) 07/23/18 13:33 Fluid Type Synovial fluid 07/25/18 15:45 Fluid Crystals Positive (NEGATIVE) H 07/25/18 15:45 Synovial WBC 96308.0 /mm3 (0.0-150.0) H 07/25/18 15:45 Synovial RBC 1916.0 /mm3 (0.0-0.0) H 07/25/18 15:45 Synovial Neutrophils 78.0 % (0-0) H 07/25/18 15:45 Synovial Lymphocytes 6.0 % (0-0) H 07/25/18 15:45 Synov Monos/Macrophage 10 % (0-0) H 07/25/18 15:45 Synovial Crystal Type Monosodium urate 07/25/18 15:45 Synovial Fluid Comment 07/25/18 15:45 Discharge Exam - Head Exam Head Exam: NORMOCEPHALIC Discharge Plan - Discharge Medications Prescriptions: Lidocaine [Lidocaine Pain Relief] 1 each TP DAILY #30 adh..patch Cefpodoxime [Vantin] 200 mg PO BID #20 tab - Follow Up Plan Condition: GOOD Disposition: HOME/ ROUTINE
[2018-08-01 14:42] VITALS: O2SAT 95
== END 2018-07-29 14:45 | disposition home health service (06) | DRG 566 ==
LOC: C.ER 10:28 → C.3T 12:16
PROVIDERS: ADMIT Internal Medicine; ATTEND Internal Medicine
PROC: 0S9D3ZX Drainage of Left Knee Joint, Percutaneous Approach, Diagnostic (ICD-10-PCS; principal; 2018-07-25)
DX: M25.462 Effusion, left knee (principal); M17.0 Bilateral primary osteoarthritis of knee; M25.461 Effusion, right knee; C50.911 Malignant neoplasm of unspecified site of right female breast; D72.819 Decreased white blood cell count, unspecified; F12.90 Cannabis use, unspecified, uncomplicated; F17.200 Nicotine dependence, unspecified, uncomplicated; I10 Essential (primary) hypertension; J44.9 Chronic obstructive pulmonary disease, unspecified; M10.9 Gout, unspecified; M23.229 Derangement of posterior horn of medial meniscus due to old tear or injury, unspecified knee; Z79.899 Other long term (current) drug therapy; Z80.3 Family history of malignant neoplasm of breast; Z82.3 Family history of stroke